=== PATIENT | female | born 2000 | race African-American/Black ===

== ENCOUNTER 2023-10-16 08:22 | Emergency (ER) | payer OTHER ==
[~2023-10-16] VITALS: Ht 170.2 cm; Wt 91.0 kg
[2023-10-16 08:27] VITALS: PULSE 83
[2023-10-16 08:33] VITALS: BP 121/69; RESP 16; TEMP 98.2; O2SAT 99
== END 2023-10-16 10:53 | disposition home or self-care (01) ==
LOC: ER 08:22
DX: L84 Corns and callosities (principal); Z53.21 Procedure and treatment not carried out due to patient leaving prior to being seen by health care provider; Z98.890 Other specified postprocedural states
CPT/HCPCS: 99281

== ENCOUNTER 2023-11-03 11:59 | Emergency (ER) | payer MEDICAID ==
[~2023-11-03] VITALS: Ht 162.6 cm; Wt 96.0 kg
[2023-11-03 12:19] VITALS: BP 125/92; PULSE 71; RESP 20; TEMP 98.5; O2SAT 100
[2023-11-03 13:01] LABS: BASOPHILS % 0.8 % (0.0-2.0); EOSINOPHILS % 0.6 % (0.0-5.0); HEMATOCRIT. 40.3 % (36.0-48.0); HEMOGLOBIN. 13.2 g/dL (12.0-16.0); LYMPHOCYTES % 35.7 % (20.0-50.0); MEAN CORPUSCULAR HEMOGLOBIN 28.6 pg (28.0-32.0); MEAN CORPUSCULAR HGB CONC 32.8 g/dL (31.0-37.0); MEAN CORPUSCULAR VOLUME 87.1 fL (81.0-99.0); MEAN PLATELET VOLUME 8.2 fl (7.4-10.4); MONOCYTES % 7.6 % (2.0-8.0); NEUTROPHILS % 55.3 % (40.0-76.0); PLATELET 364 x1000/uL (130-400); RED BLOOD CELL COUNT 4.63 mill/uL (4.2-5.4); WHITE BLOOD COUNT 5.5 x1000/uL (4.5-11.0)
[2023-11-03 13:07] LABS: CLARITY URINE CLOUDY (CLEAR); COLOR URINE ORANGE (YELLOW); GLUCOSE URINE NEGATIVE (NEGATIVE); KETONES URINE NEGATIVE (NEGATIVE); LEUKOCYTE ESTERASE URINE NEGATIVE (NEGATIVE); NITRITE URINE NEGATIVE (NEGATIVE); OCCULT BLOOD URINE 3+ (NEGATIVE); PH URINE 5.5 (4.5-8.0); PROTEIN URINE TRACE (NEGATIVE); SPECIFIC GRAVITY URINE 1.019 (1.005-1.030); UROBILINOGEN URINE 0.2 E.U./dL (0.2-1.0)
[2023-11-03 13:21] LABS: HCG SCREEN NEGATIVE
[2023-11-03 13:23] LABS: ALANINE AMINOTRANSFERASE 31 IU/L (10-49); ASPARTATE AMINOTRANSFERASE 21 IU/L (<34); BILIRUBIN TOTAL 0.4 mg/dL (0.1-1.0); CALCIUM 9.7 mg/dL (8.7-10.4); CARBON DIOXIDE 27 mEq/L (21-32); CHLORIDE 103 mEq/L (98-107); CREATININE 0.7 mg/dL (0.6-1.0); GLUCOSE 111 mg/dL (70-105); POTASSIUM 4.3 mEq/L (3.5-5.1); PROTEIN TOTAL 8.7 g/dL (6.0-8.3); SODIUM 136 mEq/L (136-145); UREA NITROGEN BLOOD 7 mg/dL (9-23)
[2023-11-03 13:36] LABS: BACTERIA URINE TRACE; RBC URINE TNTC /hpf (0-2); SQUAMOUS EPITHELIAL CELL URINE 1+ /lpf (RARE/1+); YEAST URINE NONE SEEN
[2023-11-03] MEDS: MAGNESIUM/ALUMINUM HYDROXIDE/SIMETHICONE 30ML UDC PO ONE (15:21)
[2023-11-03] MEDS: FAMOTIDINE 20MG TABLET PO SCH (15:21)
== END 2023-11-03 17:15 | disposition home or self-care (01) ==
LOC: ER 11:59
DX: K29.60 Other gastritis without bleeding (principal); Z98.890 Other specified postprocedural states
CPT/HCPCS: 36415; 74176; 80053; 81003; 84703; 85025; 99284

== ENCOUNTER 2023-11-29 16:09 | Emergency (ER) | payer SELFPAY ==
[~2023-11-29] VITALS: Ht 167.6 cm; Wt 99.0 kg
[2023-11-29 16:14] VITALS: BP 106/84; PULSE 88; RESP 20; TEMP 98.1; O2SAT 99
[2023-11-29] MEDS ORDERED: DIAZ5TAB MT (17:37)
[2023-11-29] MEDS ORDERED: HYDR-459 MT (17:37)
[2023-11-29] MEDS: DIAZEPAM 5 MG TABLET PO SCH (17:45)
== END 2023-11-29 20:23 | disposition home or self-care (01) ==
LOC: ER 16:09
DX: F41.9 Anxiety disorder, unspecified (principal); Z76.0 Encounter for issue of repeat prescription; Z98.890 Other specified postprocedural states
CPT/HCPCS: 81025; 99283

== ENCOUNTER 2023-12-25 20:07 | Emergency (ER) | payer MEDICAID ==
[~2023-12-25] VITALS: Ht 172.7 cm; Wt 91.0 kg
[~2023-12-25 20:07] MED LIST: DIAZ5TAB MT; HYDR-459 MT
[2023-12-25 20:16] VITALS: O2SAT 100
[2023-12-25 21:30] LABS: BASOPHILS % 0.7 % (0.0-2.0); EOSINOPHILS % 0.2 % (0.0-5.0); HEMOGLOBIN. 11.8 g/dL (12.0-16.0); LYMPHOCYTES % 28.2 % (20.0-50.0); MEAN CORPUSCULAR HEMOGLOBIN 28.3 pg (28.0-32.0); MEAN CORPUSCULAR HGB CONC 32.9 g/dL (31.0-37.0); MEAN CORPUSCULAR VOLUME 86.2 fL (81.0-99.0); MEAN PLATELET VOLUME 8.1 fl (7.4-10.4); MONOCYTES % 10.6 % (2.0-8.0); NEUTROPHILS % 60.3 % (40.0-76.0); PLATELET 428 x1000/uL (130-400); RED BLOOD CELL COUNT 4.18 mill/uL (4.2-5.4); RED CELL DISTRIBUTION WIDTH 15.8 % (11.6-14.6); WHITE BLOOD COUNT 5.9 x1000/uL (4.5-11.0)
[2023-12-25 21:34] LABS: CLARITY URINE CLEAR (CLEAR); COLOR URINE YELLOW (YELLOW); GLUCOSE URINE NEGATIVE (NEGATIVE); KETONES URINE TRACE (NEGATIVE); LEUKOCYTE ESTERASE URINE NEGATIVE (NEGATIVE); NITRITE URINE NEGATIVE (NEGATIVE); OCCULT BLOOD URINE NEGATIVE (NEGATIVE); PH URINE 6.5 (4.5-8.0); PROTEIN URINE NEGATIVE (NEGATIVE); SPECIFIC GRAVITY URINE 1.005 (1.005-1.030); UROBILINOGEN URINE 0.2 E.U./dL (0.2-1.0)
[2023-12-25 21:42] LABS: *AMPHETAMINES SCREEN URINE NEGATIVE (NEGATIVE); *BARBITURATES SCREEN URINE NEGATIVE (NEGATIVE); *BENZODIAZEPINES SCREEN URINE NEGATIVE (NEGATIVE); *COCAINE SCREEN URINE NEGATIVE (NEGATIVE); CANNABINOID URINE SCREEN NEGATIVE (NEGATIVE); ECSTASY MDMA SCREEN URINE NEGATIVE (NEGATIVE); METHADONE URINE SCREEN Neg (NEGATIVE); OPIATES URINE SCREEN NEGATIVE (NEGATIVE); PHENCYCLIDINE URINE SCREEN NEGATIVE (NEGATIVE)
[2023-12-25 21:45] LABS: ACETAMINOPHEN < 2 ug/mL (10-30); ALANINE AMINOTRANSFERASE 30 IU/L (10-49); ALBUMIN 4.9 g/dL (3.2-4.8); ASPARTATE AMINOTRANSFERASE 21 IU/L (<34); BILIRUBIN TOTAL 0.4 mg/dL (0.1-1.0); CARBON DIOXIDE 24 mEq/L (21-32); CHLORIDE 104 mEq/L (98-107); CREATININE 0.7 mg/dL (0.6-1.0); GLUCOSE 126 mg/dL (70-105); POTASSIUM 3.3 mEq/L (3.5-5.1); PROTEIN TOTAL 8.4 g/dL (6.0-8.3); SODIUM 135 mEq/L (136-145)
[2023-12-25 21:46] LABS: ETHANOL BLOOD < 10 mg/dL (<10); UREA NITROGEN BLOOD < 5 mg/dL (9-23)
[2023-12-25] MEDS: HALOPERIDOL LACTATE 5MG/ML VIAL IM ONE (22:59)
[2023-12-25] MEDS: DIPHENHYDRAMINE 50MG/ML VIAL IM ONE (22:59)
[2023-12-25] MEDS: POTASSIUM CHLORIDE 20MEQ TABLET SR PO ONE (22:59)
[2023-12-26 18:30] VITALS: BP 110/61; PULSE 77; RESP 18; TEMP 98.2
== END 2023-12-26 19:10 ==
LOC: ER 20:07
DX: R41.82 Altered mental status, unspecified (principal); F29 Unspecified psychosis not due to a substance or known physiological condition; E87.6 Hypokalemia; Z20.822 Contact with and (suspected) exposure to COVID-19
CPT/HCPCS: 80053; 80305; 81003; 81025; 80307; 80329; 80320; 85025; 36415; 71045; 93005; 96372; 99285; 87426; J1200; J1630; G0480

== ENCOUNTER 2025-04-17 12:52 | Emergency (ER) | payer MEDICAID ==
[~2025-04-17] VITALS: Ht 167.6 cm; Wt 70.0 kg
[2025-04-17 13:01] VITALS: O2SAT 100
[2025-04-17 16:06] LABS: ADD RBC MORPHOLOGY YES; BASOPHILS % 1.0 % (0.0-2.0); EOSINOPHILS % 1.0 % (0.0-5.0); HEMATOCRIT. 28.2 % (36.0-48.0); HEMOGLOBIN. 8.6 g/dL (12.0-16.0); LYMPHOCYTES % 28.5 % (20.0-50.0); MEAN PLATELET VOLUME 8.9 fl (7.4-10.4); MONOCYTES % 7.3 % (2.0-8.0); NEUTROPHILS % 62.2 % (40.0-76.0); PLATELET 449 x1000/uL (130-400); RED BLOOD CELL COUNT 4.56 mill/uL (4.2-5.4); RED CELL DISTRIBUTION WIDTH 21.1 % (11.6-14.6)
[2025-04-17 16:10] LABS: CLARITY URINE CLEAR (CLEAR); COLOR URINE YELLOW (YELLOW); GLUCOSE URINE NEGATIVE (NEGATIVE); KETONES URINE TRACE (NEGATIVE); LEUKOCYTE ESTERASE URINE NEGATIVE (NEGATIVE); NITRITE URINE NEGATIVE (NEGATIVE); OCCULT BLOOD URINE NEGATIVE (NEGATIVE); PH URINE 7.0 (4.5-8.0); PROTEIN URINE NEGATIVE (NEGATIVE); SPECIFIC GRAVITY URINE 1.020 (1.005-1.030); UROBILINOGEN URINE 1.0 E.U./dL (0.2-1.0)
[2025-04-17 16:20] LABS: CREATININE 0.7 mg/dL (0.6-1.0); UREA NITROGEN BLOOD 6 mg/dL (9-23)
[2025-04-17 16:21] LABS: HCG SCREEN POSITIVE
[2025-04-17 16:22] LABS: PLATELET ESTIMATE NORMAL
[2025-04-17 16:34] LABS: B-HCG QUANTITATIVE 61930 mIU/mL (<6)
[2025-04-17] MEDS ORDERED: PREN-183 MT (17:24)
[2025-04-17 17:58] VITALS: BP 100/60; PULSE 63; RESP 16; TEMP 36.9; O2SAT 100
== END 2025-04-17 18:05 | disposition home or self-care (01) ==
LOC: ER 12:52
DX: O20.0 Threatened abortion (principal); O24.111 Pre-existing type 2 diabetes mellitus, in pregnancy, first trimester; O99.011 Anemia complicating pregnancy, first trimester; Z79.899 Other long term (current) drug therapy; Z3A.01 Less than 8 weeks gestation of pregnancy
CPT/HCPCS: 80048; 81003; 81025; 84703; 84702; 85025; 86850; 86900; 86901; 36415; 76801; 76817; 99284; Z7610 ×4